=== PATIENT | female | born 1985 | race Caucasian/White ===

== ENCOUNTER 2022-08-16 08:49 | Outpatient (CLI) | payer BC | END 2022-08-16 08:50 | disposition home or self-care (01) | LOC: CSHMAMMO 08:49 | PROVIDERS: ATTEND Obstetrics & Gynecology | DX: Z12.31 Encounter for screening mammogram for malignant neoplasm of breast (principal); N63.20 Unspecified lump in the left breast, unspecified quadrant; Z85.3 Personal history of malignant neoplasm of breast; Z80.3 Family history of malignant neoplasm of breast | CPT/HCPCS: 77063; 77067 ==

== ENCOUNTER 2022-08-24 09:00 | Outpatient (CLI) | payer BC | END 2022-08-24 09:01 | disposition home or self-care (01) | LOC: CSHMAMMO 09:00 | PROVIDERS: ATTEND Obstetrics & Gynecology | DX: N63.22 Unspecified lump in the left breast, upper inner quadrant (principal); N63.21 Unspecified lump in the left breast, upper outer quadrant | CPT/HCPCS: G0279 ==

== ENCOUNTER 2022-09-13 14:27 | Outpatient (CLI) | payer BC | END 2022-09-13 14:28 | disposition home or self-care (01) | LOC: CSHRAD 14:27 | PROVIDERS: ATTEND Family Medicine | DX: S69.91XA Unspecified injury of right wrist, hand and finger(s), initial encounter (principal) ==

== ENCOUNTER 2023-03-25 09:21 | Outpatient (CLI) | payer BC | END 2023-03-25 09:22 | disposition home or self-care (01) | LOC: CSHMAMMO 09:21 | PROVIDERS: ATTEND Obstetrics & Gynecology | DX: N63.22 Unspecified lump in the left breast, upper inner quadrant (principal); R92.2 Inconclusive mammogram | CPT/HCPCS: G0279 ==